=== PATIENT | female | born 1985 | race Caucasian/White ===

== ENCOUNTER 2019-10-01 12:49 | Emergency (ER) | payer BC, SELFPAY ==
[2019-10-01 12:54] VITALS: BP 146/84; PULSE 86; RESP 18; TEMP 36.9; O2SAT 98
--- NOTE | 2019-10-01 13:10 | ED.ABDPAIN ---
HPI - Abdominal Pain General Chief Complaint: DRAPERY HEAD FORMER Stated Complaint: abd pain/preg Time Seen by Provider: 10/01/19 13:11 Source: patient and RN notes reviewed Mode of arrival: EMS Limitations: no limitations History of Present Illness HPI narrative: Pt is a 34 y/o female with a Hx of right salpingectomy, who presents to the ED via EMS with c/o lt lower ABD pain starting this morning. She notes that her LMP ended on 08/23/19. Pt states that she took an at home test roughly 2 weeks ago that came back faintly positive. She notes that she then developed a sharp, stabbing pain in her lt lower ABD this morning. Pt rates her pain at 20/10. She notes that she also passed a large amount of blood, including several large clots from her vagina this morning. Pt also reports nausea, vomiting, and diarrhea, but denies any fever or other symptoms. MD elicited complaint: abdominal pain Onset (ago): hour(s) (several) Location: other (lt lower ABD) Pain scale (0-10): 20 Quality: stabbing and sharp Associated symptoms: nausea, vomiting, diarrhea and other (vaginal bleeding) Related Data Allergies Allergy/AdvReac Type Severity Reaction Status Date / Time Penicillins Allergy Unknown Unknown Verified 07/31/19 12:41 Review of Systems Review of Systems: All systems reviewed & are unremarkable except as noted in HPI and below Constitutional: Constitutional: Denies chills, Denies fever(s), Denies headache(s) and Denies weakness Cardiovascular: Cardiovascular: Denies chest pain and Denies dyspnea Respiratory: Respiratory: Denies cough and Denies dyspnea Gastrointestinal: Gastrointestinal: Reports abdominal pain (lt lower ABD pain), Reports diarrhea, Reports nausea and Reports vomiting Genitourinary: Genitourinary: Reports abnormal vaginal bleeding [facility] Past Medical History Medical History Asthma Back pain Kidney stones Surgical History Surgical History History of salpingectomy History of tonsillectomy Hx of cholecystectomy Social History Social History Smoking status: Never smoker Alcohol intake: never Gender identity (if verbalized by the patient): Female Exam Const: General: no acute distress and well developed Orientation/consciousness: oriented to person, oriented to place, oriented to time and patient oriented x3 HENMT: Head: normocephalic Resp: Effort & Inspection: normal respiratory effort Auscultation: clear to auscultation bilaterally Cardio: Rate: regular rate Rhythm: regular rhythm GI: GI Palp: No abdominal tenderness and Yes Soft to palpation Skin: General skin exam: normal color and turgor normal Neuro: General: oriented to person, oriented to place, oriented to time and patient oriented x3 Cognition (Neuro): normal cognition Extrem: General: normal to inspection, full ROM and no pedal edema Psych: Appearance: grossly normal Mental Status: mental status grossly normal Affect: normal affect Course Vital Signs Vital signs: Vital Signs Temperature 36.9 C 10/01/19 12:54 Pulse Rate 86 10/01/19 12:54 Respiratory Rate 18 10/01/19 12:54 Blood Pressure 146/84 H 10/01/19 12:54 Pulse Oximetry 98 10/01/19 12:54 Temperature 36.9 C 10/01/19 12:54 Pulse Rate 86 10/01/19 12:54 Respiratory Rate 18 10/01/19 12:54 Blood Pressure 146/84 H 10/01/19 12:54 Pulse Oximetry 98 10/01/19 12:54 MDM - Abdominal Pain MDM Narrative Medical decision making narrative: negative. Doubt tubal . Patient likely had miscarriage since last positive preg test. Lab Data Result diagrams: 10/01/19 13:25 10/01/19 13:25 Labs: Lab Results 10/01/19 10/01/19 10/01/19 Range/Units 13:25 13:25 13:25 WBC 9.9 (4.5-10.0) K/mm3 RBC 4.31 (4.2-5.4) M/mm3 Hgb 13.6 (12.0-15.0) g/dL Hct 40.
[2019-10-01 13:32] LABS: Basophils Percent Auto 0.2 % (0.2-1.2); Eosinophils Absolute Auto 0.1 K/mm3 (0-0.3); Eosinophils Percent Auto 0.7 % (0-4.4); Hematocrit 40.2 % (37.0-47.0); Hemoglobin 13.6 g/dL (12.0-15.0); Immature Granulocyte Absolute 0.02 K/mm3 (0.00-0.031); Immature Granulocyte Percent A 0.2 % (0-0.5); Lymphocytes Absolute Auto 1.73 K/mm3 (0.9-3.2); Lymphocytes Percent Auto 17.5 % (18.3-44.2); Mean Corpuscular HGB Conc 33.8 g/dl (32-36); Mean Corpuscular Hemoglobin 31.6 pg (26-34); Mean Corpuscular Volume 93.3 fl (80-100); Mean Platelet Volume 12.1 fl (7.4-10.4); Monocytes Absolute Auto 0.6 K/mm3 (0.1-0.6); Monocytes Percent Auto 6.2 % (2.6-8.5); Neutrophils Absolute Auto 7.4 K/mm3 (1.3-6.7); Neutrophils Percent Auto 75.2 % (45.5-73.1); Platelet Count Result 168 k/mm3 (150-375); Red Blood Count 4.31 M/mm3 (4.2-5.4); Red Cell Distribution Width 12.3 % (11.5-14.5); White Blood Count 9.9 K/mm3 (4.5-10.0)
[2019-10-01 13:45] LABS: Alanine Aminotransferase 21 U/L (4-35); Albumin Level 4.4 g/dL (3.5-5.1); Alkaline Phosphatase 86 U/L (38-126); Aspartate Amino Transferase 24 U/L (14-36); Bilirubin,Total 0.7 mg/dL (0.2-1.3); Blood Urea Nitrogen 10 mg/dL (7-17); Calcium 9.1 mg/dL (8.4-10.2); Carbon Dioxide 21 mmol/L (22-30); Chloride 104 mmol/L (98-107); Estimated CRCL calculation 134 ml/min; Estimated Glomerular Filt Rate > 60; Glucose 82 mg/dL (65-105); Potassium 3.9 mmol/L (3.4-5.0); Sodium 140 mmol/L (137-145)
[2019-10-01 13:47] LABS: Add Urine Microscopic? YES; Appearance Urine Clear (Clear); Bacteria Urine Trace /hpf; Bilirubin Urine Negative (Negative); Blood Urine 3+ (Negative); Color Urine Yellow (Yellow); Glucose Urine UA Negative (Negative); Ketones Urine 2+ mg/dL (Negative); Leukocyte Esterase Ur Negative LEU/UL (Negative); Mucus Urine Few /lpf; Nitrate Urine Negative (Negative); Protein Urine 1+ mg/dL (Negative); RBC Urine 21-50 /hpf (0-2); Specific Grav Ur 1.016 (1.001-1.035); Squamous Epithelial Cell Urine Many /hpf (Few); Urobilinogen Urine Negative mg/dL (<2.0)
[2019-10-01] MEDS: ACETAMINOPHEN 325 MG TABLET 650 MG PO (14:02)
[2019-10-01 14:33] LABS: Beta HCG Quantitative < 2.39 mIU/ML
[2019-10-01] MEDS: KETOROLAC 30 MG/ML VIAL (*BKC) IV PUSH (15:46)
== END 2019-10-01 15:59 | disposition home or self-care (01) ==
PROVIDERS: Emergency Provider Emergency Medicine
DX: R10.2 Pelvic and perineal pain (principal); N93.9 Abnormal uterine and vaginal bleeding, unspecified; J45.909 Unspecified asthma, uncomplicated; Z87.442 Personal history of urinary calculi
CPT/HCPCS: 36415; 80053; 81001; 81025; 84702; 85025; 87086; 87088; 96374; 99284; A9270; J1885

== ENCOUNTER 2019-12-02 14:37 | Emergency (ER) | payer SELFPAY ==
[2019-12-02 14:48] VITALS: BP 142/80; PULSE 92; RESP 18; TEMP 36.1; O2SAT 100
--- NOTE | 2019-12-02 14:58 | ED.EAR ---
HPI - Ear Problem General Chief complaint: Ear Stated complaint: left ear pain Time Seen by Provider: 12/02/19 14:58 Source: patient Mode of arrival: ambulatory Limitations: no limitations History of Present Illness HPI Narrative: Marga Alvarenga is a 34 yo female with no PMH who comes to express care with L ear pain Related Data Home Medications Medication Instructions Recorded Confirmed No Home Medications 12/02/19 12/02/19 Allergies Allergy/AdvReac Type Severity Reaction Status Date / Time Penicillins Allergy Unknown Unknown Verified 12/02/19 14:53 Review of Systems Review of Systems: Narrative: CONSTITUTIONAL: Denies fever, chills, sweats. EYES: Denies visual changes, redness, discharge. ENT: Denies rhinorrhea, congestion, sore throat, left otalgia. CARDIOVASCULAR: Denies chest pain, palpitations, edema. RESPIRATORY: Denies dyspnea, wheezing, cough GASTROINTESTINAL: Denies abdominal pain, nausea, vomiting, diarrhea. GENITOURINARY: Denies dysuria, hematuria, abnormal discharge SKIN: Denies rash or itching. NEUROLOGIC: Denies numbness, or focal weakness. PSYCHIATRIC: Denies anxiety or depression. PMFSH Past Medical History Medical History Asthma Back pain Kidney stones Surgical History Surgical History History of salpingectomy History of tonsillectomy Hx of cholecystectomy Family History Family History Other Diabetes mellitus Heart disease High cholesterol Hypertension Social History Social History Smoking status: Never smoker Alcohol intake: never Gender identity (if verbalized by the patient): Female Comments At time of signature, I agree with nursing past medical, surgical, social and family history. There is no relevant family history pertinent to the presenting complaint. Exam Narrative: Exam Narrative: GENERAL: This is a well-nourished, well-developed patient, in mild distress. afebrile, HEAD: normocephalic, atraumatic. EYES: . Sclera clear/white. Vision is grossly intact. EARS: External ears normal, auditory canals clear and without drainage on R, L apperas erythematous and tender. TMs normal without perforation. Hearing grossly intact. NOSE: External nose normal with nasal discharge, nares without redness, has rhinorrhea. THROAT: Mucous membranes moist, NECK: Neck supple, non-tender CARDIOVASCULAR: Regular rate and rhythm without murmurs, gallops, or rubs. RESPIRATORY: Clear to auscultation. Breath sounds equal bilaterally. No wheezes, rales, or rhonchi. Occ dry cough GASTROINTESTINAL: Abdomen soft, non-tender, SKIN: warm, intact with no suspicious lesions or rash, good texture and turgor. NEURO: awake, alert, and oriented to person, place and time. There were no obvious focal neurologic abnormalities. Steady gait EXTREMITIES: Normal range of motion. BACK: Nontender without deformity Course Course Emergency Course: started on polymixin ear gtts, flonase, claritin, tramadol Vital Signs Vital signs: Vital Signs Temperature 96.9 F L 12/02/19 14:48 Pulse Rate 92 12/02/19 14:48 Respiratory Rate 18 12/02/19 14:48 Blood Pressure 142/80 H 12/02/19 14:48 Pulse Oximetry 100 12/02/19 14:48 Temperature 96.9 F L 12/02/19 14:48 Pulse Rate 92 12/02/19 14:48 Respiratory Rate 18 12/02/19 14:48 Blood Pressure 142/80 H 12/02/19 14:48 Pulse Oximetry 100 12/02/19 14:48 Medical Decision Making Differential Diagnosis Differential Diagnosis: otitis media, L ear pain, eustashian dysfunction Vital Signs Vital Signs: Vital Signs Temperature 96.9 F L 12/02/19 14:48 Pulse Rate 92 12/02/19 14:48 Respiratory Rate 18 12/02/19 14:48 Blood Pressure 142/80 H 12/02/19 14:48 Pulse Oximetry 100 12/02/19 14:48 Tempera
== END 2019-12-02 15:13 | disposition home or self-care (01) ==
PROVIDERS: Emergency Provider Nurse Practitioner
DX: H92.02 Otalgia, left ear (principal); J45.909 Unspecified asthma, uncomplicated
CPT/HCPCS: 99213; G0463

== ENCOUNTER 2020-08-07 07:44 | Emergency (ER) | payer OTHER, SELFPAY ==
[2020-08-07] VITALS (7 sets, daily range): BP systolic 113–129; BP diastolic 61–73; PULSE 54–98; RESP 10–23; TEMP 36.6; O2SAT 99
--- NOTE | 2020-08-07 07:59 | ED.NAVMDI ---
HPI - Nausea/Vomiting/Diarrhea General Chief complaint: Nausea/Vomiting/Diarrhea Stated complaint: cp Time Seen by Provider: 08/07/20 07:53 Source: patient Mode of arrival: ambulatory Limitations: no limitations History of Present Illness HPI Narrative: Patient is a 35-year-old female complaining of sudden onset of nausea vomiting that started at work. Patient states that she has vomited twice right after she had left-sided chest wall pain, sharp, mild that only lasted for a few minutes and now resolved. Denies any shortness of breath, abdominal pain, urinary symptoms, fever or chills. Related Data Home Medications Medication Instructions Recorded Confirmed No Home Medications 12/02/19 12/02/19 Allergies Allergy/AdvReac Type Severity Reaction Status Date / Time Penicillins Allergy Unknown Unknown Verified 12/02/19 14:53 Review of Systems Review of Systems: All systems reviewed & are unremarkable except as noted in HPI and below Constitutional: Constitutional: Denies body ache(s), Denies chills, Denies excessive sweating, Denies fatigue, Denies fever(s), Denies headache(s), Denies lethargy, Denies malaise, Denies weakness and Denies weight loss Eyes: Eyes: Denies blurry vision, Denies change in vision and Denies loss of vision ENT: Denies dizziness, Denies ear discharge, Denies headache(s), Denies lip swelling, Denies epistaxis, Denies nasal congestion, Denies neck pain, Denies throat swelling and Denies tongue swelling Cardiovascular: Cardiovascular: Denies chest pain with activity, Denies diaphoresis, Denies rapid heart rate, Denies edema, Denies irregular heart rhythm, Denies lightheadedness, Denies palpitations, Denies dyspnea and Denies dyspnea on exertion Respiratory: Respiratory: Denies chest congestion, Denies cough, Denies hemoptysis, Denies dyspnea and Denies dyspnea on exertion Gastrointestinal: Gastrointestinal: Denies abdominal pain, Denies melena, Denies hematochezia, Denies diarrhea and Denies hematemesis Musculoskeletal: Musculoskeletal: Denies abnormal gait, Denies deformity, Denies joint swelling, Denies limited range of motion, Denies neck pain and Denies numbness Neurologic: Denies Abnormal speech present, Denies abnormal gait, Denies confusion, Denies dizziness, Denies headache(s), Denies focal weakness, Denies loss of vision, Denies numbness, Denies Other visual disturbances, Denies Sensory deficit (Neuro) and Denies weakness Psychiatric: Psychiatric: Denies confusion, Denies depression, Denies auditory hallucinations, Denies homicidal ideation and Denies suicidal ideation Endocrine: Endocrine: Denies cold intolerance, Denies excessive sweating, Denies fatigue, Denies heat intolerance and Denies palpitations Hematologic/Lymphatic: Hematologic/Lymphatic: Denies easy bleeding and Denies easy bruising Allergic/Immunologic: Allergic/Immunologic: Denies lip swelling, Denies throat swelling and Denies tongue swelling PMFSH Past Medical History Medical History (Updated 08/07/20 @ 09:18 by Anuj Fitch MD) Asthma Back pain Kidney stones Surgical History Surgical History History of salpingectomy History of tonsillectomy Hx of cholecystectomy Family History Family History Other Diabetes mellitus Heart disease High cholesterol Hypertension Social History Social History Smoking status: Never smoker Alcohol intake: never Gender identity (if verbalized by the patient): Female Exam Const: General: cooperative, healthy appearing, comfortable, no acute distress, well developed, alert and awake; No confusion Orientation/consciousness: oriented to person, oriented to place, oriented to time, patient oriented x3 and No confusion Limitations: no limitations HENMT: Head: normal to inspection, normocephalic and atraumat
[2020-08-07 08:10] LABS: Basophils Percent Auto 0.2 % (0.2-1.2); Eosinophils Absolute Auto 0.2 K/mm3 (0-0.3); Eosinophils Percent Auto 1.7 % (0-4.4); Hematocrit 39.3 % (37.0-47.0); Hemoglobin 13.2 g/dL (12.0-15.0); Immature Granulocyte Absolute 0.02 K/mm3 (0.00-0.031); Immature Granulocyte Percent A 0.2 % (0-0.5); Lymphocytes Absolute Auto 2.05 K/mm3 (0.9-3.2); Lymphocytes Percent Auto 22.6 % (18.3-44.2); Mean Corpuscular HGB Conc 33.6 g/dl (32-36); Mean Corpuscular Hemoglobin 31.6 pg (26-34); Mean Platelet Volume 12.7 fl (7.4-10.4); Monocytes Absolute Auto 0.5 K/mm3 (0.1-0.6); Monocytes Percent Auto 5.4 % (2.6-8.5); Neutrophils Absolute Auto 6.4 K/mm3 (1.3-6.7); Neutrophils Percent Auto 69.9 % (45.5-73.1); Platelet Count Result 160 k/mm3 (150-375); Red Blood Count 4.18 M/mm3 (4.2-5.4); Red Cell Distribution Width 12.9 % (11.5-14.5); White Blood Count 9.1 K/mm3 (4.5-10.0)
[2020-08-07 08:15] LABS: Add Urine Microscopic? YES; Appearance Urine Clear (Clear); Bilirubin Urine Negative (Negative); Blood Urine Negative (Negative); Color Urine Yellow (Yellow); Glucose Urine UA Negative (Negative); Ketones Urine Negative (Negative); Leukocyte Esterase Ur Negative LEU/UL (Negative); Mucus Urine Heavy /lpf; Nitrate Urine Negative (Negative); Protein Urine 1+ mg/dL (Negative); Specific Grav Ur 1.025 (1.001-1.035); Squamous Epithelial Cell Urine Many /hpf (Few); Urobilinogen Urine Negative mg/dL (<2.0); WBC Urine 0-3 /hpf
[2020-08-07] MEDS: SODIUM CHLORIDE 0.9% IV 1,000 ML 999 ML IV CONT (08:15)
[2020-08-07] MEDS: ONDANSETRON INJ 4 MG/2 ML VIAL IV PUSH (08:15)
[2020-08-07 08:23] LABS: Alanine Aminotransferase 18 U/L (4-35); Albumin Level 3.8 g/dL (3.5-5.1); Alkaline Phosphatase 74 U/L (38-126); Anion Gap 4 mmol/L (8-16); Aspartate Amino Transferase 25 U/L (14-36); Bilirubin,Total 0.3 mg/dL (0.2-1.3); Blood Urea Nitrogen 9 mg/dL (7-17); Calcium 8.9 mg/dL (8.4-10.2); Carbon Dioxide 29 mmol/L (22-30); Chloride 106 mmol/L (98-107); Estimated CRCL calculation 129 ml/min; Estimated Glomerular Filt Rate > 60; Glucose 90 mg/dL (65-105); Lipase 37 U/L (23-300); Potassium 3.7 mmol/L (3.4-5.0); Sodium 139 mmol/L (137-145)
[2020-08-07 08:38] LABS: Troponin I < 0.012 ng/mL (0.000-0.034)
--- NOTE | 2020-08-07 13:51 | ECG_ITS ---
Measurements Intervals [place] Rate: 66 P: 26 IA: 117 QRS: 18 QRSD: 84 T: 20 QT: 368 QTc: 387 Interpretive Statements SINUS RHYTHM WITH SHORT IA INTERVAL LOW QRS VOLTAGE IN PRECORDIAL LEADS BORDERLINE ECG Electronically Signed On 08-07-2020 14:36:19 [employer]END[employer] by Maninder Scott D.O.
== END 2020-08-07 09:15 | disposition left against medical advice (07) ==
PROVIDERS: Emergency Provider Emergency Medicine
DX: R07.89 Other chest pain (principal); R11.2 Nausea with vomiting, unspecified; J45.909 Unspecified asthma, uncomplicated; Z87.442 Personal history of urinary calculi; R94.31 Abnormal electrocardiogram [ECG] [EKG]
CPT/HCPCS: 36415; 80053; 81001; 81025; 83690; 84484; 85025; 93005; 96361; 96374; 99284; J2405; J7030

== ENCOUNTER 2021-02-10 13:45 | Emergency (ER) | payer OTHER, SELFPAY ==
[2021-02-10 13:56] VITALS: BP 156/80; PULSE 90; RESP 20; TEMP 36.7; O2SAT 99
[2021-02-10 14:00] VITALS: BP 156/80; PULSE 90; RESP 20; TEMP 36.7; O2SAT 99
--- NOTE | 2021-02-10 14:01 | ED.EAR ---
HPI - Ear Problem General Chief complaint: Ear Stated complaint: Qtip stuck in ear Time Seen by Provider: 02/10/21 14:01 Source: patient, RN notes reviewed and old records reviewed Mode of arrival: ambulatory Limitations: no limitations History of Present Illness HPI Narrative: 35 year old female presents to [facility] care with complaints of getting the end of that Q tip stuck in her right ear around midnight last night and has been unable to get it out. She states that her right ear is painful, denies any drainage from her right ear at this time. She also reports that she was at her [employer] game yesterday and now she has this rash on her face and also on her neck, states she's been putting hydrocortisone ointment on rash with no improvement. Patient stats that she has had similar rash after being in the sun before. Patient denies any new facial wash, makeup, lotions, detergents, foods or exposure to poisonous plants. MD Complaint: ear pain and foreign body (cotton ball end stuck in ear) Location: left ear Duration: constant Severity: moderate Relieving factors: nothing Exacerbating factors: nothing Context: Reports other Discharge from ear: Reports no Associated symptoms ear: other (ear pain right ear) Treatment prior to arrival: other (put peroxide in her ear trying to wash it out.) Related Data Allergies Allergy/AdvReac Type Severity Reaction Status Date / Time Penicillins Allergy Unknown Unknown Verified 12/02/19 14:53 Review of Systems Review of Systems: Narrative: CONSTITUTIONAL: Denies fever, chills, or sweats. EYES: Denies visual changes, redness, or discharge. ENT: Denies rhinorrhea, congestion, sore throat, positive for right ear pain from foreign body stuck in her ear CARDIOVASCULAR: Denies chest pain, palpitations, or edema. RESPIRATORY: Denies cough or dyspnea. GASTROINTESTINAL: Denies abdominal pain, nausea, vomiting, or diarrhea. GENITOURINARY: Denies dysuria or hematuria. SKIN: positive red scattered macules noted on face and neck which are itchy MUSCULOSKELETAL: Denies any acute back pain, joint pain, or myalgia. NEUROLOGIC: Denies headache, numbness, or weakness. PSYCHIATRIC: Denies anxiety or depression. All systems reviewed & are unremarkable except as noted in HPI and below PMFSH Past Medical History Medical History (Updated 02/14/21 @ 19:33 by Shira Pearson NP) Asthma Back pain Kidney stones Surgical History Surgical History History of salpingectomy History of tonsillectomy Hx of cholecystectomy Family History Family History Other Diabetes mellitus Heart disease High cholesterol Hypertension Social History Social History (Updated 02/14/21 @ 19:24 by Shira Pearson NP) Smoking packs per day: 0.5 Smoking cigarettes per day: 10.0 Smoking status: Current every day smoker Tobacco type: cigarettes Alcohol intake: never Substance use: never Living arrangements: with family Gender identity (if verbalized by the patient): Female Comments At time of signature, agree with nursing past medical, surgical, social and family history. There is no relevant family history pertinent to the presenting complaint Exam Narrative: Exam Narrative: GENERAL: Well-appearing, well-nourished, and in no acute distress. HEAD: Normocephalic, atraumatic. EYES: PERRLA and EOMI. ENT: Nares clear, no rhinorrhea or epistaxis. Mucous membranes moist.Right TM covered by Q tip end with canal red and irritated. Left TM normal with good light reflex.Throat pink with no lesions exudates or tonsils present. NECK: Supple. no Lymphadenopathy CHEST: Clear to auscultation. No respiratory distress.SAO2 99% on room air, no tachypnea or accessory muscle use. HEART: Regular rate and rhythm. No murmur heard. Normal peripheral pulses. ABDOMEN: Soft, nontender, nondistended, normal active bowel sounds. EX
== END 2021-02-10 14:26 | disposition home or self-care (01) ==
PROVIDERS: Emergency Provider Registered Nurse
DX: H60.501 Unspecified acute noninfective otitis externa, right ear (principal); R21 Rash and other nonspecific skin eruption; J45.909 Unspecified asthma, uncomplicated
CPT/HCPCS: 99213; G0463

== ENCOUNTER 2021-07-16 16:53 | Emergency (ER) | payer OTHER, SELFPAY ==
[2021-07-16 17:15] VITALS: BP 122/76; PULSE 88; RESP 16; TEMP 37.3; O2SAT 99
--- NOTE | 2021-07-16 18:16 | ED.URI ---
HPI - URI/Sore Throat General Chief Complaint: Upper Respiratory Infection Stated Complaint: congestion/ear pain Time Seen by Provider: 07/16/21 18:01 Source: patient and RN notes reviewed Mode of arrival: ambulatory Limitations: no limitations History of Present Illness HPI Narrative: Patient presents today complaining of a 2-day history of vomiting, diarrhea, bilateral ear pain, sore throat. She has been taking NyQuil with some relief. Patient has not been vaccinated against COVID-19. Related Data Home Medications Medication Instructions Recorded Confirmed acetaminophen-codeine 1 tablet PO DAILY 07/16/21 07/16/21 cyclobenzaprine 10 mg PO DAILY 07/16/21 07/16/21 triamterene-hydrochlorothiazid 1 tablet PO DAILY 07/16/21 07/16/21 Allergies Allergy/AdvReac Type Severity Reaction Status Date / Time Penicillins Allergy Unknown Unknown Verified 07/16/21 17:54 Review of Systems Review of Systems: CONSTITUTIONAL: Denies body aches, fever, chills, or sweats. EYES: Denies visual changes, redness, or discharge. ENT: Denies rhinorrhea, congestion. + Sore throat, bilateral ear pain CARDIOVASCULAR: Denies chest pain, palpitations, or edema. RESPIRATORY: Denies cough or dyspnea. GASTROINTESTINAL: Denies abdominal pain, nausea. + Vomiting, diarrhea GENITOURINARY: Denies dysuria or hematuria. SKIN: Denies rash, itching, or wounds. MUSCULOSKELETAL: Denies back pain, joint pain, or myalgia. NEUROLOGIC: Denies headache, numbness, tingling, or weakness. PSYCH: Denies depression or anxiety. [facility] Past Medical History Medical History (Updated 07/16/21 @ 18:23 by Marga Betancourt, LAURO, BC) Asthma Back pain Kidney stones Surgical History Surgical History History of salpingectomy History of tonsillectomy Hx of cholecystectomy Family History Family History Other Diabetes mellitus Heart disease High cholesterol Hypertension Social History Social History Smoking packs per day: 0.5 Smoking cigarettes per day: 10.0 Smoking status: Current every day smoker Tobacco type: cigarettes Alcohol intake: never Substance use: never Gender identity (if verbalized by the patient): Female Comments At time of signature, I have reviewed and agree with nursing past medical, surgical, social and family history unless otherwise noted. Please see nursing chart for further information. There is no relevant family history pertinent to the presenting complaint Exam Narrative: GENERAL: Well-appearing, well-nourished, and in no acute distress. HEAD: Normocephalic, atraumatic. EYES: EOMI. No redness or drainage. Conjunctivae normal. ENT: Mucous membranes pink and moist. Nares clear. No rhinorrhea. TMs normal bilaterally. Throat normal. Uvula midline. NECK: Normal AROM. Supple. No lymphadenopathy. CHEST: No respiratory distress. Clear to auscultation. HEART: Regular rate and rhythm. No murmur appreciated. Normal peripheral pulses. EXTREMITIES: Normal range of motion. No edema. SKIN: Warm, dry, no rash. Capillary refill normal. Normal skin turgor. NEURO: No focal deficits. Alert and oriented x3. Gait steady. PSYCH: Normal affect. No signs of depression or anxiety. Course Vital Signs Vital signs: Vital Signs Temperature 99.2 F 07/16/21 17:15 Pulse Rate 88 07/16/21 17:15 Respiratory Rate 16 07/16/21 17:15 Blood Pressure 122/76 07/16/21 17:15 Pulse Oximetry 99 07/16/21 17:15 Temperature 99.2 F 07/16/21 17:15 Pulse Rate 88 07/16/21 17:15 Respiratory Rate 16 07/16/21 17:15 Blood Pressure 122/76 07/16/21 17:15 Pulse Oximetry 99 07/16/21 17:15 Reviewed. Pt has been instructed to follow up with her PCP regarding her elevated blood pressure today. MDM - URI/Sore Throat Differential Diagnosis Diff
== END 2021-07-16 18:45 | disposition home or self-care (01) ==
PROVIDERS: Emergency Provider Nurse Practitioner
DX: U07.1 COVID-19 (principal); J45.909 Unspecified asthma, uncomplicated; F17.210 Nicotine dependence, cigarettes, uncomplicated
CPT/HCPCS: 87081; 87426; 87804; 87880; 99213; C9803; G0463

== ENCOUNTER 2021-12-26 19:41 | Emergency (ER) | payer OTHER, SELFPAY ==
[2021-12-26 19:50] VITALS: BP 140/72; PULSE 104; RESP 16; TEMP 37.1; O2SAT 98
--- NOTE | 2021-12-26 19:57 | ED.GENADULT ---
HPI - General Adult General Chief complaint: Urogenital-Female Stated complaint: lower back/abd pain Time Seen by Provider: 12/26/21 19:57 Source: patient Mode of arrival: ambulatory Limitations: no limitations History of Present Illness HPI narrative: 36-year-old female presents with complaint of left-sided back pain with radiation to left abdomen, urinary frequency and nausea that started early this morning. No concern for . Took ibuprofen and pain was better and then worsened again tonight. Denies dysuria. No urgency. Reports history of kidney stones and this pain does not feel similar. Having normal bowel movements. Able to eat and drink. Afebrile. All systems reviewed and negative except as noted above. Related Data Home Medications Medication Instructions Recorded Confirmed hydrochlorothiazide 25 mg PO DAILY 12/26/21 12/26/21 Allergies Allergy/AdvReac Type Severity Reaction Status Date / Time Penicillins Allergy Unknown Unknown Verified 12/26/21 19:59 Review of Systems Review of Systems: CONSTITUTIONAL: Denies fever, chills, or sweats. EYES: Denies visual changes, redness, or discharge. ENT: Denies rhinorrhea, congestion, sore throat, or otalgia. CARDIOVASCULAR: Denies chest pain, palpitations, or edema. RESPIRATORY: Denies cough or dyspnea. GASTROINTESTINAL: Denies abdominal pain, nausea, vomiting, or diarrhea. GENITOURINARY: Reports urinary frequency. Denies dysuria and hematuria. Reports of left lower back pain with radiation to abdomen. SKIN: Denies rash or itching. MUSCULOSKELETAL: Denies back pain, joint pain, or myalgia. NEUROLOGIC: Denies headache, numbness, or weakness. PSYCHIATRIC: Denies anxiety or depression. All other systems reviewed are negative, except as documented in HPI. [facility] Past Medical History Medical History (Updated 12/26/21 @ 20:02 by Ting Arana NP) Asthma Back pain Kidney stones Surgical History Surgical History History of salpingectomy History of tonsillectomy Hx of cholecystectomy Family History Family History Other Diabetes mellitus Heart disease High cholesterol Hypertension Social History Social History Smoking packs per day: 0.5 Smoking cigarettes per day: 10.0 Smoking status: Current every day smoker Tobacco type: cigarettes Alcohol intake: never Substance use: never Gender identity (if verbalized by the patient): Female Comments At time of signature, agree with nursing past medical, surgical, social and family history. There is no relevant family history pertinent to the presenting complaint. Exam Narrative: GENERAL: This is a well-nourished, well-developed patient, in no apparent distress. HEAD: normocephalic, atraumatic. EYES: PERRL. Sclera clear/white. Vision is grossly intact. EARS: External ears normal NOSE: External nose normal NECK: Neck supple, non-tender without lymphadenopathy, masses or thyromegaly. CARDIOVASCULAR: Regular rate and rhythm without murmurs, gallops, or rubs. RESPIRATORY: Clear to auscultation. Breath sounds equal bilaterally. No wheezes, rales, or rhonchi. GASTROINTESTINAL: Abdomen soft, non-tender, nondistended. Bowel sounds are active. No hepato-splenomegaly, or palpable masses. No guarding. SKIN: warm, Dry, intact with no suspicious lesions or rash, good texture and turgor. NEURO: awake, alert, and oriented to person, place and time. There were no obvious focal neurologic abnormalities. EXTREMITIES: Normal range of motion to all extremities. BACK: Nontender without deformity. No CVA tenderness. Course Course Level of Care: Express Care Visit Vital Signs Vital signs: Vital Signs Temperature 37.1 C 12/26/21 19:50 Pulse Rate 104 H 12/26/21 19:50 Respiratory Rate 16 12/26/21 19:50 Blood P
== END 2021-12-26 20:05 | disposition home or self-care (01) ==
PROVIDERS: Emergency Provider Nurse Practitioner Family
DX: N39.0 Urinary tract infection, site not specified (principal); F17.210 Nicotine dependence, cigarettes, uncomplicated; J45.909 Unspecified asthma, uncomplicated
CPT/HCPCS: 81003; 87086; 87088; 99213; G0463

== ENCOUNTER 2022-04-23 14:08 | Emergency (ER) | payer OTHER, SELFPAY ==
[2022-04-23 14:24] VITALS: BP 133/45; PULSE 78; RESP 16; TEMP 37.3; O2SAT 99
--- NOTE | 2022-04-23 14:56 | ED.FEMALEGU ---
HPI - Female Genitourinary General Chief complaint: Urogenital-Female Stated complaint: hip/abd pain Time Seen by Provider: 04/23/22 14:52 Source: patient, RN notes reviewed and old records reviewed Mode of arrival: ambulatory Limitations: no limitations History of Present Illness HPI Narrative: 36 year old female who presents to [facility] care with complaints of possible urinary tract infection with blood noted when she wiped and some lower abdominal discomfort over supra pubic area. Patient states that girlfriend of old boyfriend told her she had trichomonas so she wants to be tested for STD but not treated unless positive. Patient reports that she has no vaginal discharge or any itching.She states she has chronic right hip pain and she is out of her pain medication and can't get anymore till the 12 of May. patient states that she needs a hip replacement done. MD elicited complaint: other (blood when wiped after urination, suprpubic tenderness and right hip pain) Onset (ago): day(s) (2) Severity scale (1-10): 5 Related Data Allergies Allergy/AdvReac Type Severity Reaction Status Date / Time Penicillins Allergy Unknown Unknown Verified 04/23/22 14:19 Review of Systems Review of Systems: CONSTITUTIONAL: Denies fever, chills, or sweats. EYES: Denies visual changes, redness, or discharge. ENT: Denies rhinorrhea, congestion, sore throat, or otalgia. CARDIOVASCULAR: Denies chest pain, palpitations, or edema. RESPIRATORY: Denies cough or dyspnea. GASTROINTESTINAL: Denies abdominal pain, nausea, vomiting, or diarrhea. GENITOURINARY: Denies dysuria positive blood when she wiped, suprapubic tenderness SKIN: Denies rash or itching. MUSCULOSKELETAL: Positive for chronic back pain,right hip joint pain, or myalgia. NEUROLOGIC: Denies headache, numbness, or weakness. PSYCHIATRIC: Denies anxiety or depression. All systems reviewed & are unremarkable except as noted in HPI and below [facility] Past Medical History Medical History (Updated 04/24/22 @ 00:00 by Maria A Mendieta) Asthma Back pain Hip pain Kidney stones Surgical History Surgical History History of salpingectomy History of tonsillectomy Hx of cholecystectomy Family History Family History Other Diabetes mellitus Heart disease High cholesterol Hypertension Social History Social History Smoking packs per day: 0.5 Smoking cigarettes per day: 10.0 Smoking status: Current every day smoker Tobacco type: cigarettes Alcohol intake: never Substance use: never Gender identity (if verbalized by the patient): Female Comments At time of signature, agree with nursing past medical, surgical, social and family history. There is no relevant family history pertinent to the presenting complaint Exam Narrative: GENERAL: Well-appearing, well-nourished, and in no acute distress. HEAD: Normocephalic, atraumatic. EYES: PERRLA and EOMI. ENT: Nares clear, no rhinorrhea or epistaxis. Mucous membranes moist. TM's normal with good light reflex, throat pink with no lesions or exudates. tonsils absent. NECK: Supple. No lymphadenopathy CHEST: Clear to auscultation. No respiratory distress. SaO2 99% on room air HEART: Regular rate and rhythm. No murmur heard. Normal peripheral pulses. ABDOMEN: Soft, nontender, nondistended, normal active bowel sounds. Reports prepubic tenderness no CVA tenderness on exam EXTREMITIES: Normal range of motion. No edema. reports pain to right hip increases with activity, denies any tingling or numbness to lower extremities SKIN: Warm, dry, no rash. NEURO: No focal deficits. Alert and oriented x3. Course Course Level of Care: Express Care Visit Vital Signs Vital signs: Vital Signs Temperature 37.3 C 04/23/22 14:24 Pulse Rate 78 04/23/22 14:24 Respiratory Rate 16 0
== END 2022-04-23 15:20 | disposition home or self-care (01) ==
PROVIDERS: Emergency Provider Registered Nurse
DX: N39.0 Urinary tract infection, site not specified (principal); A59.9 Trichomoniasis, unspecified; G89.29 Other chronic pain; M25.551 Pain in right hip; J45.909 Unspecified asthma, uncomplicated; F17.210 Nicotine dependence, cigarettes, uncomplicated
CPT/HCPCS: 81003; 87086; 87491; 87591; 87661; 99213; G0463

== ENCOUNTER 2022-10-11 12:07 | Emergency (ER) | payer OTHER, SELFPAY ==
[2022-10-11 12:20] VITALS: BP 140/80; PULSE 115; RESP 16; TEMP 37.1; O2SAT 99
--- NOTE | 2022-10-11 12:27 | ED.SKABFB ---
HPI - Skin/Abscess/Foreign Bdy General Chief complaint: Skin/Abscess/Foreign Body Stated complaint: shadia infected Source: patient and RN notes reviewed History of Present Illness HPI narrative: 37-year-old female presents urgent care with request for a wound check. Patient states she had shadia placed in her lower back after lumbar surgery almost 2 weeks ago. Patient states she feels the wound is irritated and itchy. Patient was concerned it looks different than before. Denies any drainage, pain, fevers, or chills. Denies any numbness or tingling. Patient has not been taking anything for pain. Some parts of this dictation were generated by voice recognition software and may contain typographical and/or grammatical inaccuracies. Related Data Home Medications Medication Instructions Recorded Confirmed duloxetine 60 mg capsule,delayed 60 mg PO DAILY 10/11/22 10/11/22 release gabapentin 300 mg capsule 300 mg PO TID 10/11/22 10/11/22 liraglutide 0.6 mg/0.1 mL (18 mg/3 0.6 mg subcut DAILY 10/11/22 10/11/22 mL) subcutaneous pen injector ([employer] 2-Audie) Allergies Allergy/AdvReac Type Severity Reaction Status Date / Time Penicillins Allergy Unknown Unknown Verified 10/11/22 12:33 Review of Systems Review of Systems: CONSTITUTIONAL: Denies fever, chills, or sweats. EYES: Denies visual changes, redness, or discharge. ENT: Denies otalgia and sore throat CARDIOVASCULAR: Denies chest pain, palpitations, or edema. RESPIRATORY: Denies cough or dyspnea. GASTROINTESTINAL: Denies abdominal pain, nausea, vomiting, or diarrhea. GENITOURINARY: Denies dysuria or hematuria. SKIN: Reports itching. MUSCULOSKELETAL: Denies back pain, joint pain, or myalgia. NEUROLOGIC: Denies headache, numbness, or weakness. [facility] Past Medical History Medical History (Updated 10/11/22 @ 12:34 by Poornima Archibald APRN) Asthma Back pain Hip pain Kidney stones Surgical History Surgical History History of salpingectomy History of tonsillectomy Hx of cholecystectomy Family History Family History Other Diabetes mellitus Heart disease High cholesterol Hypertension Social History Social History Smoking packs per day: 0.5 Smoking cigarettes per day: 10.0 Smoking status: Current every day smoker Tobacco type: cigarettes Alcohol intake: never Substance use: never Living arrangements: with family Gender identity (if verbalized by the patient): Female Comments At the time of my signature, I reviewed and agree with the nursing past medical, surgical, social, and family history. There is no relevant family history pertinent to the patient complaint. Exam Narrative: GENERAL: This is a well-nourished, well-developed patient, in no apparent distress. HEAD: normocephalic, atraumatic. EYES: PERRL. Sclera clear/white. Vision is grossly intact. EARS: External ears normal, auditory canals clear and without drainage, TMs normal without perforation. Hearing grossly intact. NOSE: External nose normal with no obvious nasal discharge, nares without redness, no rhinorrhea. THROAT: Mucous membranes moist, posterior pharynx clear. NECK: Neck supple, non-tender without lymphadenopathy, masses or thyromegaly. CARDIOVASCULAR: Regular rate and rhythm without murmurs, gallops, or rubs. RESPIRATORY: Clear to auscultation. Breath sounds equal bilaterally. No wheezes, rales, or rhonchi. GASTROINTESTINAL: Abdomen soft, non-tender, nondistended. Bowel sounds are active. No hepato-splenomegaly, or palpable masses. No guarding. SKIN: warm, intact with no suspicious lesions or rash, good texture and turgor. healing linear wound with shadia intact. No drainage or erythema noted. NEURO: awake, alert, and oriented to person, place and time. There were no obvious focal neuro
== END 2022-10-11 12:31 | disposition home or self-care (01) ==
PROVIDERS: Emergency Provider Nurse Practitioner Family
DX: Z48.02 Encounter for removal of sutures (principal); J45.909 Unspecified asthma, uncomplicated; F17.210 Nicotine dependence, cigarettes, uncomplicated
CPT/HCPCS: 99212; G0463

== ENCOUNTER 2024-10-30 09:26 | Emergency (ER) | payer SELFPAY ==
--- NOTE | 2024-10-30 09:29 | ED.WOUNDLAC ---
HPI - Wound/Laceration General Chief Complaint: Wound/Laceration Stated Complaint: Wound Right Leg Time Seen by Provider: 10/30/24 09:28 Source: patient Mode of arrival: ambulatory Limitations: no limitations History of Present Illness HPI narrative: Marga is a 39 year old female patient presenting to the clinic today with c/o a sore to the right inner proximal thigh. First noticed this morning. She denies having fever. States it is making her whole leg hurt. Related Data Home Medications ?Medication ?Instructions ?Recorded ?Confirmed ?Last Taken ?Type duloxetine 60 mg capsule,delayed 60 mg PO DAILY 10/11/22 10/11/22 Unknown History release gabapentin 300 mg capsule 300 mg PO TID 10/11/22 10/11/22 Unknown History liraglutide 0.6 mg/0.1 mL (18 mg/3 0.6 mg subcut DAILY 10/11/22 10/11/22 Unknown History mL) subcutaneous pen injector ([employer] 2-Audie) Allergies Allergy/AdvReac Type Severity Reaction Status Date / Time Penicillins Allergy Unknown Unknown Verified 10/11/22 12:33 Review of Systems Review of Systems: Pertinent positives per HPI. Patient denies any fever, chills, rash, headache, visual changes, dizziness, cough, runny nose, sore throat, shortness of breath, chest pain, palpitations, nausea, vomiting, diarrhea, constipation, abdominal pain, or any urinary issues. [facility] Past Medical History Medical History (Updated 10/30/24 @ 09:44 by Adilson Mendosa APRN) Hip pain Back pain Kidney stones Asthma Surgical History Surgical History History of salpingectomy Hx of cholecystectomy History of tonsillectomy Family History Family History Other Diabetes mellitus Heart disease High cholesterol Hypertension Social History Social History Smoking packs per day: 0.5 Smoking cigarettes per day: 10.0 Smoking status: Current every day smoker Tobacco type: cigarettes Alcohol intake: never Substance use: never Living arrangements: with family Gender identity (if verbalized by the patient): Female Comments At the time of my signature, I reviewed and agree with the nursing past medical, surgical, social, and family history. There is no relevant family history pertinent to the patient complaint. Exam Narrative: General: Well-developed, morbidly obese, in no apparent distress Head: Normocephalic, atraumatic. Cardio: Regular rate and rhythm, s1 and s2 normal, no murmur appreciated. Resp: Clear to auscultation bilaterally, no rhonchi, rales, wheezing or rubs. Integumentary: [place], warm, and dry, 5 x 4 cm redness, indurated, non fluctuant skin infection/early abscess to the right inner proximal thigh. Tender to palpation over this area with mild erythema, bruised like center of the abscess with small opening with yellowish red discharge from the open area Course Course Emergency Course: Portions of this record may have been created with voice recognition software. Level of Care: Express Care Visit Vital Signs Vital signs: Vital Signs Temperature 35.8 C L 10/30/24 09:35 Pulse Rate 95 10/30/24 09:35 Respiratory Rate 16 10/30/24 09:35 Blood Pressure 120/72 10/30/24 09:35 Pulse Oximetry 99 10/30/24 09:35 Temperature 35.8 C L 10/30/24 09:35 Pulse Rate 95 10/30/24 09:35 Respiratory Rate 16 10/30/24 09:35 Blood Pressure 120/72 10/30/24 09:35 Pulse Oximetry 99 10/30/24 09:35 Vital signs reviewed MDM - Wound/Laceration MDM Narrative Medical decision making narrative: At the time of visit patient is resting comfortably on the exam table. Patient appears to be nontoxic. Labs: Wound culture was obtained and sent to the lab Plan: I suspect patient has a early abscess to the right proximal inner thigh. Prescription for Bactrim was sent to the pharmacy. Wound culture was obtained and sent to the lab. Supportive measures were discussed with the patient and they voiced understanding discharge instructions and agrees to treatment plan. Return precautions reviewed Differential Diagnosis Differential diagnosis: Likely abscess and other (Cellulitis, skin infection) Discharge Plan Discharge Clinical Impression: Abscess Patient Disposition: Home, Self-Care Condition: Stable Instructions: Antibiotic Form, Abscess (ED) Additional Instructions: Wound culture obtained and sent to the lab. Wash daily with soap and water Keep wound clean and dry Keep area covered if it is draining May take Tylenol/Motrin as needed for pain or fever Take Bactrim as prescribed May apply warm moist compresses to the affected area for 15 minutes at a time. Do this 5-6 times daily-if the area becomes more filled with fluid-recommend follow-up for incision and drainage Watch for signs and symptoms of infection- redness, streaking, swelling, purulent discharge, or increase in pain. Follow up with your PCP in 2-3 days for a wound check. Patient Language: Russian Prescriptions: New sulfamethoxazole-trimethoprim [Bactrim DS] 800-160 mg tablet 1 tablet PO Q12H 10 Days Qty: 20 0RF No Action gabapentin 300 mg capsule 300 mg PO TID duloxetine 60 mg capsule,delayed release(DR/EC) 60 mg PO DAILY [employer] 2-Audie 0.6 mg/0.1 mL (18 mg/3 mL) pen injector 0.6 mg SUBCUT DAILY Follow-up/Referrals: UNKNOWN,DOCTOR [Primary Care Provider] - Stand Alone Forms: Work/School Release IP Time of Disposition: 09:50 Quality NIHSS Nursing Documentation ED NIHSS nursing documentation: reviewed/agree
[2024-10-30 09:35] VITALS: BP 120/72; PULSE 95; RESP 16; TEMP 35.8; O2SAT 99
== END 2024-10-30 09:54 | disposition home or self-care (01) ==
PROVIDERS: Emergency Provider Nurse Practitioner Family
DX: L02.415 Cutaneous abscess of right lower limb (principal); F17.210 Nicotine dependence, cigarettes, uncomplicated
CPT/HCPCS: 87070; 87075; 87205; 99213; G0463

== ENCOUNTER 2025-05-22 11:06 | Emergency (ER) | payer MEDICAID, SELFPAY ==
[2025-05-22 11:18] VITALS: BP 121/92; PULSE 95; RESP 18; TEMP 36.2; O2SAT 100
--- NOTE | 2025-05-22 11:52 | ED.GENADULT ---
HPI - General Adult General Chief complaint: Urogenital-Female Stated complaint: R leg golf ball size growth/Kidney infection? Time Seen by Provider: 05/22/25 11:52 Source: patient, RN notes reviewed and old records reviewed Mode of arrival: ambulatory Limitations: no limitations History of Present Illness HPI narrative: 39-year-old female presents to the [facility] with multiple complaints. A red swollen sore area to the area between the buttock and the posterior left upper thigh, appeared this morning Concern for several days of flank pain, none currently Patient reports that a person she slept with, unprotected sex a week or 2 ago tested positive for trich. Related Data Home Medications ?Medication ?Instructions ?Recorded ?Confirmed ?Last Taken ?Type duloxetine 60 mg capsule,delayed 60 mg PO DAILY 10/11/22 05/22/25 Unknown History release pregabalin 150 mg capsule 150 mg PO Q12H 05/22/25 05/22/25 Unknown History Allergies Allergy/AdvReac Type Severity Reaction Status Date / Time Penicillins Allergy Unknown Unknown Verified 05/22/25 11:19 Review of Systems Review of Systems: All systems reviewed & are unremarkable except as noted in HPI and below Constitutional: Constitutional: Reports no additional constitutional complaints ENT: Reports system reviewed and no additional complaints, except as documented Cardiovascular: Cardiovascular: Reports no additional cardiovascular complaints, Denies chest pain and Denies dyspnea Respiratory: Respiratory: Reports no additional respiratory complaints, Denies chest congestion, Denies cough and Denies dyspnea Genitourinary: Genitourinary: Reports as per HPI Musculoskeletal: Musculoskeletal: Reports no additional musculoskeletal complaints Integumentary/Breasts: Skin/Breast: Reports as per HPI [facility] Past Medical History Medical History Hip pain Back pain Kidney stones Asthma Surgical History Surgical History History of salpingectomy Hx of cholecystectomy History of tonsillectomy Family History Family History Other Diabetes mellitus Heart disease High cholesterol Hypertension Social History Social History Smoking packs per day: 0.5 Smoking cigarettes per day: 10.0 Smoking status: Current every day smoker Tobacco type: cigarettes Alcohol intake: never Substance use: never Living arrangements: with family Gender identity (if verbalized by the patient): Female Comments At the time of my signature, I reviewed and agree with the nursing past medical, surgical, social, and family history. There is no relevant family history pertinent to the patient complaint. Exam Const: General: cooperative, healthy appearing, comfortable, no acute distress, well developed, alert and well nourished Nutritional Appearance: well nourished and obese Orientation/consciousness: patient oriented x3 Limitations: no limitations HENMT: Head: normal to inspection Eyes: General: appearance normal, both eyes and all related structures Alignment and Position: alignment normal Neck: Neck: normal visual inspection, full ROM, no lymphadenopathy and no meningeal signs Chest: Chest palpation & inspection: normal inspection of the chest Resp: Effort & Inspection: normal respiratory effort and able to speak in complete sentences Auscultation: clear to auscultation bilaterally, no crackles, no rales, no rhonchi and no wheezes Cardio: Rate: regular rate : General: Yes no CVA tenderness Skin: General skin exam: normal color and no rashes or lesions noted Full body images:  1. 2.5 red circular area, red tender, not raised, no fluctuance. Neuro: General: patient oriented x3, gait normal, moves all extremities and no meningeal signs Cognition (Neuro): normal cognition Speech: normal speech Gait exam (Neuro): Normal gait present Extrem: General: normal to inspection, full ROM, capillary refill normal and normal gait Psych: Appearance: grossly normal and well kempt Mental Status: mental status grossly normal Speech and movement: Normal speech and movement present and Clear speech present Affect: normal affect Attitude: cooperative Course Course Level of Care: Express Care Visit Vital Signs Vital signs: Vital Signs Temperature 97.2 F L 05/22/25 11:18 Pulse Rate 95 05/22/25 11:18 Respiratory Rate 18 05/22/25 11:18 Blood Pressure 121/92 H 05/22/25 11:18 Pulse Oximetry 100 05/22/25 11:18 Oxygen Delivery Room Air 05/22/25 11:18 Temperature 97.2 F L 05/22/25 11:18 Pulse Rate 95 05/22/25 11:18 Respiratory Rate 18 05/22/25 11:18 Blood Pressure 121/92 H 05/22/25 11:18 Pulse Oximetry 100 05/22/25 11:18 Oxygen Delivery Room Air 05/22/25 11:18 Reviewed Medical Decision Making MDM Narrative Medical decision making narrative: Patient sitting in exam room. Patient is nontoxic, vitals stable. Patient presents with concerns for a reddened area to the posterior right thigh. Also concern for a friend testing positive for Trichomonas and did have unprotected sex. Discharge instructions reviewed with patient, as well as provided in writing per nursing staff. The instructions also include specific and strict return/GO TO THE ER as well as f/u information. All questions have been answered, and the patient deny any further questions with discharge and discharge plan. Some parts of this dictation were generated by voice recognition software and may contain typographical and/or grammatical inaccuracies. Differential Diagnosis Differential Diagnosis: Cellulitis, abscess, trich, Medical Records Medical records reviewed: Yes I reviewed the external patient's medical records. Vital Signs Vital Signs: Vital Signs Temperature 97.2 F L 05/22/25 11:18 Pulse Rate 95 05/22/25 11:18 Respiratory Rate 18 05/22/25 11:18 Blood Pressure 121/92 H 05/22/25 11:18 Pulse Oximetry 100 05/22/25 11:18 Oxygen Delivery Room Air 05/22/25 11:18 Temperature 97.2 F L 05/22/25 11:18 Pulse Rate 95 05/22/25 11:18 Respiratory Rate 18 05/22/25 11:18 Blood Pressure 121/92 H 05/22/25 11:18 Pulse Oximetry 100 05/22/25 11:18 Oxygen Delivery Room Air 05/22/25 11:18 Reviewed Lab Data Lab results reviewed: Yes I reviewed the patient's lab results. Labs: Lab Results 05/22/25 05/22/25 Range/Units 11:25 11:51 POC Urine Color Yellow POC Urine Clarity Clear POC Urine pH 6.0 POC Ur Specif [place] 1.015 POC Urine Protein Negative (Negative) POC Ur Glucose (UA) Negative (Negative) POC Urine Ketones Negative (Negative) POC Urine Blood Trace (Negative) POC Urine Nitrite Negative (Negative) POC Urine Bilirubin Negative (Negative) POC Urine Urobilinogen 0.2 POC U Leukocyte Esteras Negative (Negative) C. trachomatis (PCR) Not detected (NOT DETECTE) N. gonorrhoeae (PCR) Not detected (NOT DETECTE) T. vaginalis (PCR) Not detected (NOT DETECTE) Reviewed Critical Care Time Critical Care Time Critical Care Time: No Discharge Plan Discharge Clinical Impression: Trichomonas exposure, Cellulitis of right thigh Patient Disposition: Home Condition: Stable Instructions: Trichomoniasis (ED), Cellulitis (ED) Additional Instructions: For the red area or the concern for cellulitis to the right thigh, soak warm soapy water with Epson salts at least once a day, preferably twice. Do not pick at the area Take antibiotic as prescribed Apply warm compresses alternating with cool compresses. Take Tylenol as needed for pain For worsening symptoms go directly to the emergency room. Today your urine did not show signs of a urinary tract infection. You have been treated for Trichomonas. You have also been tested for chlamydia and gonorrhea. We do recommend you follow-up with a coating operator or your primary care provider for further testing Patient Language: Mosotho Prescriptions: New metronidazole 500 mg tablet 500 mg PO Q12H Qty: 14 0RF doxycycline monohydrate 100 mg tablet 100 mg PO BID Qty: 14 0RF No Action pregabalin 150 mg capsule 150 mg PO Q12H duloxetine 60 mg capsule,delayed release(DR/EC) 60 mg PO DAILY Follow-up/Referrals: UNKNOWN,DOCTOR [Primary Care Provider]
[2025-05-22 11:59] LABS: EDUAAPPEAR Clear; EDUABILI Negative (Negative); EDUABLOOD Trace (Negative); EDUACOLOR1 Yellow; EDUAGLUCOSE Negative (Negative); EDUAKETONE Negative (Negative); EDUALEUKO Negative (Negative); EDUANITRATE Negative (Negative); EDUAPH 6.0; EDUAPROTEIN Negative (Negative); EDUASPGRAVITY 1.015; EDUAUROBILI 0.2
[2025-05-22 20:28] LABS: Trichomonas Vag PCR NOT DETECTED (NOT DETECTE)
== END 2025-05-22 12:09 | disposition home or self-care (01) ==
PROVIDERS: Emergency Provider Nurse Practitioner
DX: L03.115 Cellulitis of right lower limb (principal); Z20.2 Contact with and (suspected) exposure to infections with a predominantly sexual mode of transmission; F17.210 Nicotine dependence, cigarettes, uncomplicated; J45.909 Unspecified asthma, uncomplicated
CPT/HCPCS: 81003; 87491; 87591; 87661; 99213; G0463